=== PATIENT | male | born 1950 ===

== ENCOUNTER 2021-05-24 10:12 | Observation (INO) ==
[~2021-05-24 10:12] MED LIST: Buffered Lidocaine 1% SYRIN 1 ml INTRADERM ONE; Lactated Ringers 1000 ml BAG 1,000 ML IV SCH
[2021-05-24] MEDS ORDERED: ceFAZolin 2 GM PREMIX 2 GM/50 ML BAG ONE (10:34)
[2021-05-24] MEDS ORDERED: Rocuronium 50 mg VIAL 10 mg/ml 5 ml VIAL (50 mg) ONE ×2 (11:42→14:38)
[2021-05-24] MEDS ORDERED: Midazolam 2 mg/2 ml VIAL 1 mg/ml 2 ml VIAL (2 mg) ONE (11:42)
[2021-05-24] MEDS ORDERED: fentaNYL 250 mcg/5 ml 50 MCG/ML 5 ml VIAL (250 MCG) ONE (11:43)
[2021-05-24] MEDS ORDERED: Lidocaine 2% PF 5 ML VIAL ONE (11:43)
[2021-05-24] MEDS ORDERED: Propofol 10 MG/ML 20 ML BTL ONE ×3 (11:49→15:30)
[2021-05-24] MEDS ORDERED: Ondansetron 4 mg VIAL 2 MG/ML 2 ml VIAL IV PRN ×2 (12:59→16:33)
[2021-05-24] MEDS ORDERED: DiMENhydriNATE IV 50 mg/ml 1 ml VIAL IV PUSH PRN (12:59)
[2021-05-24] MEDS ORDERED: Naloxone 0.4 mg VIAL 0.4 mg/ml 1 ml VIAL IV PRN (12:59)
[2021-05-24] MEDS ORDERED: Acetaminophen IV 1 GM/100ML 1,000 MG/100 ML VIAL IVPB PRN (12:59)
[2021-05-24] MEDS ORDERED: HYDROmorphone 1 MG/1 ML SYRINGE IV PRN (12:59)
[2021-05-24] MEDS ORDERED: Ropivacaine 5 MG/ML 20 ML VIAL 0.5% (100 MG) ONE ×2 (13:11→13:56)
[2021-05-24] MEDS ORDERED: Dexamethasone IV 4 MG/ML VIAL 1 ml VIAL ONE (14:24)
[2021-05-24] MEDS ORDERED: EPHEDrine (Pressors) 50 MG/ML VIAL ONE (14:24)
[2021-05-24] MEDS ORDERED: Ketamine HCL 50 mg/ml 10 ml VIAL (500 MG) ONE (14:53)
[2021-05-24] MEDS ORDERED: HYDROmorphone 1 MG/1 ML SYRINGE ONE (15:24)
[2021-05-24] MEDS ORDERED: Ondansetron 4 mg VIAL 2 MG/ML 2 ml VIAL ONE (15:59)
[2021-05-24] MEDS ORDERED: diPHENhydraMINE 25 mg TAB PO PRN (16:33)
[2021-05-24] MEDS ORDERED: Magnesium Hydroxide LIQ 30 ML UDC PO PRN (16:33)
[2021-05-24] MEDS ORDERED: Morphine 2 MG/ML SYRINGE IV PRN (16:33)
[2021-05-24] MEDS ORDERED: diPHENhydraMINE IV 50 MG/ML 1 ml VIAL (BENADRYL) IV PRN (16:33)
[2021-05-24] MEDS ORDERED: Ondansetron ODT 4 mg TAB 4 MG TAB PO PRN (16:33)
[2021-05-24] MEDS ORDERED: Lactulose 30 ml UDC PO PRN (16:33)
[2021-05-24] MEDS ORDERED: fentaNYL 100 mcg/2 ml 50 MCG/ML VIAL ONE (16:45)
[2021-05-24] MEDS: fentaNYL 100 mcg/2 ml 50 MCG/ML VIAL IV PRN ×4 (16:46→17:38)
[2021-05-24] MEDS ORDERED: HYDROcodone/ACETAMIN 5/325 mg TAB PO PRN (17:30)
[2021-05-24] MEDS ORDERED: HYDROcodone/ACETAMIN 5/325 mg TAB ONE (17:41)
[2021-05-24] MEDS: Lactated Ringers 1000 ml BAG 1,000 ML IV SCH (18:38)
[2021-05-24] MEDS: HYDROcodone/ACETAMIN 5/325 mg TAB PO PRN (20:28)
[2021-05-24] MEDS: Magnesium Hydroxide LIQ 30 ML UDC PO SCH (21:05)
[2021-05-24] MEDS: ceFAZolin 1 GM ADVAN 1 GM in NS 0.9% 50 ML 50 ML IVPB SCH (23:11)
[2021-05-25] MEDS: HYDROcodone/ACETAMIN 5/325 mg TAB PO PRN ×2 (05:46→12:13)
[2021-05-25] MEDS: Lactated Ringers 1000 ml BAG 1,000 ML IV SCH (05:46)
[2021-05-25] MEDS: ceFAZolin 1 GM ADVAN 1 GM in NS 0.9% 50 ML 50 ML IVPB SCH ×2 (05:49→13:28)
[2021-05-25 05:59] LABS: Hematocrit 40 % (42-52); Hemoglobin 13.5 g/dL (14.0-18.0); Mean Platelet Volume 9.1 fL (7.4-10.4); Platelet Count 210 10^3/uL (150-450)
[2021-05-25 06:27] LABS: Calcium 8.9 mg/dL (8.6-10.3); EGFR African American 107.8 (>60); EGFR Non-African American 89.1 (>60); Potassium 4.2 mmol/L (3.5-5.0)
[2021-05-25] MEDS: Magnesium Hydroxide LIQ 30 ML UDC PO SCH (08:17)
[2021-05-25 08:30] VITALS: BP 121/64
[2021-05-25] MEDS ORDERED: Vitamin THERAPEUTIC TAB PO SCH (09:00)
== END 2021-05-25 14:50 | disposition home or self-care (01) ==
LOC: OR 10:12 → SSU 10:12
PROVIDERS: ADMIT Orthopaedic Surgery Adult Reconstructive Orthopaedic Surgery; ATTEND Orthopaedic Surgery Adult Reconstructive Orthopaedic Surgery